=== PATIENT | female | born 1945 | race Caucasian/White ===

== ENCOUNTER → 2025-08-16 09:42 | Outpatient (REF) | payer OTHER, SELFPAY | LOC: RAD 09:42 | PROVIDERS: ATTENDING PHYSICIAN Internal Medicine Cardiovascular Disease; FAMILY PHYSICIAN Internal Medicine | DX: H53.9 Unspecified visual disturbance (principal); Z86.73 Personal history of transient ischemic attack (TIA), and cerebral infarction without residual deficits | CPT/HCPCS: 93306 ==

== ENCOUNTER → 2025-08-16 09:44 | Outpatient (REF) | payer OTHER, SELFPAY | LOC: RAD 09:44 | PROVIDERS: ATTENDING PHYSICIAN Internal Medicine Cardiovascular Disease; FAMILY PHYSICIAN Internal Medicine | DX: H53.9 Unspecified visual disturbance (principal); Z86.73 Personal history of transient ischemic attack (TIA), and cerebral infarction without residual deficits | CPT/HCPCS: 93306; 93880 ==